=== PATIENT | male | born 1980 | race Caucasian/White ===

== ENCOUNTER 2018-04-04 11:22 | Emergency (ER) | payer BC ==
[~2018-04-04] VITALS: Ht 172.7 cm; Wt 70.3 kg
[2018-04-04 11:22] VITALS: BP 122/73
== END 2018-04-04 11:58 | disposition home or self-care (01) ==
LOC: ER 11:25
DX: S09.8XXA Other specified injuries of head, initial encounter (principal); F07.81 Postconcussional syndrome; V00.311A Fall from snowboard, initial encounter; Y93.89 Activity, other specified; Y92.89 Other specified places as the place of occurrence of the external cause; Y99.8 Other external cause status
CPT/HCPCS: Z7502